=== PATIENT | male | born 1950 | race Caucasian/White ===

== ENCOUNTER 2022-05-06 22:25 | Inpatient (IN) | payer MEDICARE, SELFPAY ==
[2022-05-06 22:40] VITALS: BP 144/67; PULSE 56; RESP 16; TEMP 36.6; O2SAT 96
--- NOTE | 2022-05-07 03:47 | PC.ADMIT ---
Admission Note: Pt arrived on unit at 2237 as a direct admit from [facility]. Pt is a 71 male on a CV for SI and increased depression. Pt reports stressors are his finances and living situation. Pt rents a room and reports having difficulty walking up and down the stairs due to muscle weakness. Pt reports he smokes cigarettes 1 PPD and drinks 1 pint whiskey a day. CIWA WNL. NAD. Denies SI/HI/AH/VH. Contracts for safety. PMH: HTN. Pt AAOx4. Pleasant and cooperative with admission process. Maintained on q15 safety checks.
[2022-05-07 04:00] VITALS: BP 144/63; PULSE 53; RESP 16; TEMP 37.4; O2SAT 94
[2022-05-07 07:25] VITALS: BMI 25.2
[2022-05-07 08:25] VITALS: BP 109/54; PULSE 65; RESP 16; TEMP 36.4; O2SAT 95
[2022-05-07] MEDS: Folic Acid 1 MG TABLET PO (08:26)
[2022-05-07] MEDS: Atorvastatin Calcium 40 MG TABLET PO (08:26)
[2022-05-07] MEDS: lisinopriL 40 MG TABLET PO (08:27)
[2022-05-07] MEDS: Acetaminophen 325 MG TABLET 650 MG PO ×2 (08:33→17:27)
--- NOTE | 2022-05-07 13:48 | HO.PSYADMNOT ---
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 The patient reported that he had been feeling very depressed but in the last week he started having suicidal thoughts without a clear plan. he walked himself from the emergency room with a local hospital asking for help. He complains of chronic symptoms of depression elicited by depressed mood, anhedonia, lack of energy, feelings of hopelessness and worthlessness. Also the patient drinks alcohol in a daily basis around 1 been to of alcohol daily. According to his report, he has never been on detox or rehab but he have had the were used that is why he does not drive. On the emergency room, since the patient was unable to contract for safety he was deemed inpatient level of care and transferring to this facility for psychiatric stabilization. On the interview, the patient was pleasant and cooperative, he had a wider range of affect he stated that he was feeling down and depressed that he had several problems such as housing and difficult access to services. He denied auditory hallucinations, paranoia or safety concerns. He was able to contract for safety in this facility. Past Psychiatric History: Denies prior psychiatric treatment. Denies prior psychiatric admissions Medical Evaluation Reviewed: Yes [facility] Medical History Alcohol abuse Depression HLD (hyperlipidemia) HTN (hypertension) Vertigo Family History: denies Social History: the patient is the youngest of 3 children, his milestones were achieved at expected age and he was raised by his parents. He reported that he was doing very fine that he had a CT good childhood. 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 The patient has never been , he denies having children and he states that he has a few friends. Even though, he states that he lives on the 2nd floor and he has problems in going up and down and having access to services Substance History: tobacco 1 pack a day. Alcohol, he started using alcohol as a teenager and he had episodes of drinking heavily. Currently he drinks alcohol 1 pin today. He was placed on CIWA protocol and he scored 0. He denies prior treatment of alcohol use disorder, denies detox or rehab or delirium tremens. He denies use of other drugs Trauma History: denies Diagnostics Vital Signs (24Hr): Vital Signs - 24 hr 05/06/22 22:40 05/07/22 04:00 05/07/22 08:25 Temperature 97.9 F 99.3 F 97.6 F Pulse Rate 56 53 65 Respiratory Rate 16 16 16 Blood Pressure 144/67 H 144/63 H 109/54 L Pulse Oximetry 96 94 95 Oxygen Delivery Method Room Air Room Air Room Air BMI result Body Mass Index 25.2 Meds/Allergies Meds Home Medications Medication Instructions Recorded Confirmed Type lisinopril 40 mg tablet 40 mg PO DAILY 05/07/22 05/07/22 History Allergies Allergies Allergy/AdvReac Type Severity Reaction Status Date / Time No Known Allergies Allergy Verified 05/07/22 00:56 Mental Status Exam Mental Status Exam Patient Appearance: Unkempt Patient Orientation: Person and Situation Level of Consciousness: Awake Patient Behavior: Cooperative Mood Description: Calm Affect Description: Constricted Ability to Follow Directions: Fair Speech Pattern: Slurred and Appropriate Hallucinations: None Delusions: Not Present Thought Process: Linear Thought Content: positive for Circumstantial and positive for Poverty of Content Judgement: Fair Assessment & Plan Assessment & Plan (1) Depression: Status: Acute Code(s): F32.A - Depression, unspecified (2) Alcohol abuse: Status: Acute Code(s): F10.10 - Alcohol abuse, uncomplicated Plan The patient is an elderly male with limited social support with a long history of alcohol use disorder and recently suicidal thoughts in the context of poor access to services and other psychosocial stressors. Plan 1. Gather collateral information. 2. Continue medical workout. 3. Start Remeron 15 mg p.o. q.h.s. to target depression and insomnia. Patient educated on: diagnosis and therapeutic strategies Informed Consent: understands Reason for continued inpatient stay Substantial Risk for: harm to self, inability to function, rapid decompensation and med/psych decompensation
--- NOTE | 2022-05-07 15:12 | P.CONHOSP_ITS ---
History of Present Illness Data of Consult Service Date: 05/07/22 Primary Care Provider: Unknown Physician HPI Reason for consult: medical H&P 71 year old male with history htn, hld, vertigo, CKD stage III, 1ppd smoker, and alcohol abuse admitted to geriatric psychiatry with consult placed for medical H&P. Reports consuming 1pt hard alcohol daily, last drink was 1+ weeks ago. Denies withdrawal symptoms. Has noted some constipation but had full BM today. No associated abd pain, n/v, melena, hematochezia. Review of Systems Review of Systems: General: No fevers, malaise, unintentional weight loss HEENT: No blurred vision, diplopia Cardiovascular: No chest pain, palpitations, or leg edema Respiratory: No shortness of breath, wheezing, cough GI: +constipation. No abdominal pain, nausea, vomiting, diarrhea, melena, hematochezia Neuro: No headaches, weakness, paresthesias Psych: +depression, +si, +alcohol abuse Skin: No rashes or lesions [facility] Medical History Alcohol abuse Depression HLD (hyperlipidemia) HTN (hypertension) Vertigo Family History Mother Brain cancer Father [place] (myocardial infarction) Social History Household Members: Other Household Members Other:: Pt reports he rents a room in a house Housing: House Do you presently have visiting nurse or other home services: No Patient Tobacco Use Status: Current everyday Tobacco user Tobacco use type: Cigarette Cigarette Packs Per Day: 1 Cigarettes Per Day: 20.0 Years Smoked: 50 Smoked in Last 30 Days: Yes e-Cigarette/Vaping Use: Never Used Patient Interested in Nicotine Replacement: No Patient Given Instructions on How to Stop Smoking: No (Refused) Date Education Initiated: 05/06/22 Second Hand Smoke Exposure: Yes Use of substances other than those prescribed or required for medical reasons: No Substance Use Type Other:: Denies Currently Displaying Signs/Symptoms of Drug Intoxication Withdrawal: No Any prior treatment program specific to substance use: No Have you been hit, kicked, punched, or otherwise hurt by someone within the past year? If so, by whom?: No Do you feel safe in your current relationship?: No Current Relationship Is there a partner from a previous relationship who is making you feel unsafe now?: No Are you made to feel afraid or neglected: No Spiritual Healthcare Practices: Denies [facility] Practices: Denies Cultural Healthcare Practices: Denies Advance Directives: No Advance Directives Information Provided: Yes Advance Directives on File: No Do you have thoughts of harming others: None Do you have a plan to hurt others: No Plan Recently lost weight without trying: No How much weight loss: Not applicable Eating poorly because of decreased appetite: No Nutrition screen score: 0 Nutrition Risks: No Nutritional Risk Poor oral hygiene: No Meds Allergies Allergy/AdvReac Type Severity Reaction Status Date / Time No Known Allergies Allergy Verified 05/07/22 00:56 Active Medications: Current Medications Acetaminophen (Acetaminophen 325 Mg Tablet) 650 mg PO Q6H PRN PRN Reason: Headache/Pain Mild Scale (1-3) Last Admin: 05/07/22 08:33 Dose: 650 mg Al Hydroxide/Mg Hydroxide (Magnesium Hydrox/Alum Hydrox 30 Ml Oral.Susp) 30 ml PO Q6H PRN PRN Reason: Heartburn/Nausea Atorvastatin Calcium (Atorvastatin Calcium 40 Mg Tablet) 40 mg PO DAILY [facility] Last Admin: 05/07/22 08:26 Dose: 40 mg Folic Acid (Folic Acid 1 Mg Tablet) 1 mg PO DAILY [facility] Last Admin: 05/07/22 08:26 Dose: 1 mg Hydroxyzine HCl (Hydroxyzine Hcl 25 Mg Tablet) 25 mg PO Q6H PRN PRN Reason: Anxiety Lisinopril (Lisinopril 40 Mg Tablet) 40 mg PO DAILY [facility]; Protocol Last Admin: 05/07/22 08:27 Dose: 40 mg Lisinopril (Lisinopril 40 Mg Tablet) 40 mg PO DAILY [facility]; Protocol Lorazepam (Lorazepam 1 Mg Tablet) 1 mg PO Q6H PRN PRN Reason: CIWA <8 Magnesium Hydroxide (Milk Of Magnesia 30 Ml Oral.Susp) 30 ml PO DAILY PRN PRN Reason: Constipation Meclizine HCl (Meclizine Hcl 25 Mg Tablet) 25 mg PO Q6H PRN PRN Reason: dizziness Trazodone HCl (Trazodone Hcl 50 Mg Tablet) 50 mg PO BEDTIME PRN PRN Reason: Insomnia Home Medications Medication Instructions Recorded Confirmed Last Taken Type lisinopril 40 mg tablet 40 mg PO DAILY 05/07/22 05/07/22 Unknown History Physical Exam Vital Signs and Narrative: Vital Signs: Last Vital Signs Temp 97.6 F 05/07/22 08:25 Pulse 65 05/07/22 08:25 Resp 16 05/07/22 08:25 BP 109/54 L 05/07/22 08:25 Pulse Ox 95 05/07/22 08:25 O2 Del Method 05/07/22 08:25 BMI result Body Mass Index 25.2 Constitutional - Awake and Alert, No apparent distress Eyes - PERRLA, EOMI Cardiovascular - S1S2, RRR, No edema Respiratory - Normal lung expansion, Normal respiratory effort, No respiratory distress, CTA bilaterally Gastrointestinal - NT / ND; +BS; No rebound or guarding Extremities - no calf tenderness bilaterally, no swelling Musculoskeletal - Normal inspection, normal ROM Skin - Warm/Dry Neurological - Alert & oriented x3, CN II-XII in tact, 5/5 strength BUE and BLE Psychological - Appropriate affect Assessment and Plan (1) Depression: Status: Acute (2) Alcohol abuse: Status: Acute Plan 71 year old male with history htn, hld, vertigo, CKD stage III, 1ppd smoker, and alcohol abuse admitted to geriatric psychiatry with consult placed for medical H&P. #depression/si -Plan per psychiatry #HTN- controlled -Continue lisinopril -Add home hctz if hypertensive #HLD -continue atorvastatin 40mg daily #Vertigo -Continue meclizine prn #CKD stage 3 -Creat 1.49, BUn 30. Slight elevation from baseline, likely dehydration -Recommend repeat BMP #Nitcotine dependence -1ppd smoker -declines NRT #alcohol abuse -no active withdrawal -Plan per psychiatry #constipation -Recommend docusate BID prn. Can use milk of mag if no BM in 24 hours Thank you for allowing me to participate in this consult. Signing off at this time. Please do not hesitate to call for further questions.
--- NOTE | 2022-05-07 16:28 | PC.NURSE ---
Pt declined NRT, smokes 1 pack cigarettes daily. Will notify staff if decision changes.
[2022-05-07 17:31] VITALS: BP 112/57; PULSE 60; RESP 16; TEMP 36.7; O2SAT 94
[2022-05-07 18:00] VITALS: BP 112/53; PULSE 71; RESP 18; TEMP 36.4; O2SAT 93
[2022-05-08 07:00] VITALS: BMI 25.4
[2022-05-08 08:16] LABS: Estimated Average Glucose 120 mg/dL; Hemoglobin A1c % 5.8 %
[2022-05-08 08:24] LABS: Cholesterol 139 mg/dL; HDL Cholesterol 37 mg/dL; LDL Cholesterol Calculated 69 mg/dl; Magnesium 2.5 mg/dL (1.6-2.6); Triglycerides 167 mg/dL
[2022-05-08 08:45] LABS: Free T4 (Free Thyroxine) 1.11 ng/dL (0.71-1.85); Thyroid Stimulating Hormone 1.67 uIU/mL (0.32-4.0)
[2022-05-08 08:57] LABS: Folate 17.6 ng/mL (> or = 4.0); Vitamin B12 348 pg/mL (200-900)
[2022-05-08 09:28] VITALS: BP 122/55; PULSE 62; RESP 16; TEMP 36.1; O2SAT 92
[2022-05-08] MEDS: Folic Acid 1 MG TABLET PO (09:29)
[2022-05-08] MEDS: Atorvastatin Calcium 40 MG TABLET PO (09:30)
[2022-05-08] MEDS: Acetaminophen 325 MG TABLET 650 MG PO (09:34)
[2022-05-08] MEDS: lisinopriL 40 MG TABLET PO (09:35)
--- NOTE | 2022-05-08 11:57 | P.PNPSI_ITS ---
Subjective Subjective Date of Service: 05/08/22 Reason For Visit: Major Depressive Disorder,Alcohol use Disorder Subjective Notes: Conditional Voluntary Interim History: The nursing staff reported that the patient slept well overnight. The occupational therapist did a Early he scored 21/30 and his Lawrence test is 4.8 so he can not live independently with help. The physical therapist came and assessing that he is okay for the ambulation without help. On interview, the patient denies new symptoms I encouraged him to participate in group activities. Mental Status Exam Mental Status Exam Patient Appearance: Appropriate Patient Orientation: Person, Place and Situation Level of Consciousness: Awake Patient Behavior: Passive Mood Description: Calm Affect Description: Constricted Patient Cognition Impaired: Yes Ability to Follow Directions: Good Speech Pattern: Clear Hallucinations: None Delusions: Not Present Thought Process: Distracted Thought Content: positive for Linear Judgement: Fair Diagnostics Vital Signs (24Hr): Vital Signs - 24 hr 05/07/22 17:31 05/07/22 18:00 05/08/22 09:28 Temperature 98.1 F 97.6 F 97.0 F Pulse Rate 60 71 62 Respiratory Rate 16 18 16 Blood Pressure 112/57 L 112/53 L 122/55 L Pulse Oximetry 94 93 92 Oxygen Delivery Method Room Air Room Air Room Air BMI result Body Mass Index 25.4 Labs Labs: Laboratory Results - last 48 hr 05/08/22 05/08/22 05/08/22 07:54 07:54 07:54 Estimat Average Glucose 120 Hemoglobin A1c % 5.8 Magnesium 2.5 Triglycerides 167 Cholesterol 139 LDL Cholesterol, Calc 69 HDL Cholesterol 37 Vitamin B12 348 Folate 17.6 TSH 1.67 Free T4 1.11 Medications Medications Current Medications Acetaminophen (Acetaminophen 325 Mg Tablet) 650 mg PO Q6H PRN PRN Reason: Headache/Pain Mild Scale (1-3) Last Admin: 05/08/22 09:34 Dose: 650 mg Al Hydroxide/Mg Hydroxide (Magnesium Hydrox/Alum Hydrox 30 Ml Oral.Susp) 30 ml PO Q6H PRN PRN Reason: Heartburn/Nausea Atorvastatin Calcium (Atorvastatin Calcium 40 Mg Tablet) 40 mg PO DAILY [facility] Last Admin: 05/08/22 09:30 Dose: 40 mg Folic Acid (Folic Acid 1 Mg Tablet) 1 mg PO DAILY [facility] Last Admin: 05/08/22 09:29 Dose: 1 mg Hydroxyzine HCl (Hydroxyzine Hcl 25 Mg Tablet) 25 mg PO Q6H PRN PRN Reason: Anxiety Lisinopril (Lisinopril 40 Mg Tablet) 40 mg PO DAILY [facility]; Protocol Last Admin: 05/08/22 09:35 Dose: 40 mg Lorazepam (Lorazepam 1 Mg Tablet) 1 mg PO Q6H PRN PRN Reason: CIWA <8 Magnesium Hydroxide (Milk Of Magnesia 30 Ml Oral.Susp) 30 ml PO DAILY PRN PRN Reason: Constipation Meclizine HCl (Meclizine Hcl 25 Mg Tablet) 25 mg PO Q6H PRN PRN Reason: dizziness Mirtazapine (Mirtazapine 7.5 Mg Tablet) 7.5 mg PO BEDTIME [facility] Trazodone HCl (Trazodone Hcl 50 Mg Tablet) 50 mg PO BEDTIME PRN PRN Reason: Insomnia Allergies Allergies Allergy/AdvReac Type Severity Reaction Status Date / Time No Known Allergies Allergy Verified 05/07/22 00:56 Assessment & Plan Assessment & Plan (1) Depression: Status: Acute Code(s): F32.A - Depression, unspecified (2) Alcohol abuse: Status: Acute Code(s): F10.10 - Alcohol abuse, uncomplicated Plan The patient is an elderly male with limited social support with a long history of alcohol use disorder and recently suicidal thoughts in the context of poor access to services and other psychosocial stressors. Plan 1. Gather collateral information. 2. Continue medical workout. 3. Start Remeron 15 mg p.o. q.h.s. to target depression and insomnia. A 4. Discontinue CIWA protocol, start vitamins. I spent ___20___ minutes with the patient and/or on the patient floor today, greater than?50% of which was spent counseling/coordinating care. Reason for contiued inpatient stay Substantial Risk for: inability to function, rapid decompensation and med/psych decompensation
[2022-05-08 20:00] VITALS: BP 106/55; PULSE 55; RESP 16; TEMP 36.5; O2SAT 91
[2022-05-08] MEDS: Mirtazapine 7.5 MG TABLET PO (20:39)
[2022-05-09 08:20] VITALS: BP 106/51; PULSE 49; RESP 16; TEMP 36.6; O2SAT 94
[2022-05-09] MEDS: Folic Acid 1 MG TABLET PO (08:21)
[2022-05-09] MEDS: Multivitamin TABLET 1 TAB PO (08:21)
[2022-05-09] MEDS: Atorvastatin Calcium 40 MG TABLET PO (08:21)
--- NOTE | 2022-05-09 14:08 | HO.PSYCHPN ---
Subjective Subjective Date of Service: 05/09/22 Reason For Visit: Major Depressive Disorder,Alcohol use Disorder Subjective Notes: Conditional Voluntary Interim History: The nursing staff reported the patient has been in his room most of the time he got out only for meals and he had a shower. He slept 8 hours. The occupational therapist reported that he scored 21/30 on the [place] and 4.8 on the Lawrence test. The social work administrator reported that he has been living in his apartment for the last 20 years on the 2nd floor and he a leg that he cannot climb and he was looking for proper housing. [facility] called and we updated. We are in the process of getting more collateral information. On interview the patient denies new symptoms he does not look to dysphoric. No side effects with Remeron Mental Status Exam Mental Status Exam Patient Appearance: Appropriate Patient Orientation: Person and Situation Level of Consciousness: Awake Patient Behavior: Appropriate Mood Description: Depressed Affect Description: Constricted Patient Cognition Impaired: Yes Ability to Follow Directions: Good Speech Pattern: Clear Hallucinations: None Delusions: Not Present Thought Process: Distracted Thought Content: positive for [place] and positive for Poverty of Content Judgement: Fair Diagnostics Vital Signs (24Hr): Vital Signs - 24 hr 05/08/22 20:00 05/09/22 08:20 Temperature 97.7 F 97.8 F Pulse Rate 55 49 L Respiratory Rate 16 16 Blood Pressure 106/55 L 106/51 L Pulse Oximetry 91 L 94 Oxygen Delivery Method Room Air Room Air BMI result Body Mass Index 25.4 Labs Labs: Laboratory Results - last 48 hr 05/08/22 05/08/22 05/08/22 07:54 07:54 07:54 Estimat Average Glucose 120 Hemoglobin A1c % 5.8 Magnesium 2.5 Triglycerides 167 Cholesterol 139 LDL Cholesterol, Calc 69 HDL Cholesterol 37 Vitamin B12 348 Folate 17.6 TSH 1.67 Free T4 1.11 Medications Medications Current Medications Acetaminophen (Acetaminophen 325 Mg Tablet) 650 mg PO Q6H PRN PRN Reason: Headache/Pain Mild Scale (1-3) Last Admin: 05/08/22 09:34 Dose: 650 mg Al Hydroxide/Mg Hydroxide (Magnesium Hydrox/Alum Hydrox 30 Ml Oral.Susp) 30 ml PO Q6H PRN PRN Reason: Heartburn/Nausea Atorvastatin Calcium (Atorvastatin Calcium 40 Mg Tablet) 40 mg PO DAILY [facility] Last Admin: 05/09/22 08:21 Dose: 40 mg Folic Acid (Folic Acid 1 Mg Tablet) 1 mg PO DAILY [facility] Last Admin: 05/09/22 08:21 Dose: 1 mg Hydroxyzine HCl (Hydroxyzine Hcl 25 Mg Tablet) 25 mg PO Q6H PRN PRN Reason: Anxiety Lisinopril (Lisinopril 40 Mg Tablet) 40 mg PO DAILY [facility]; Protocol Last Admin: 05/09/22 08:22 Dose: Not Given Lorazepam (Lorazepam 1 Mg Tablet) 1 mg PO Q6H PRN PRN Reason: CIWA <8 Magnesium Hydroxide (Milk Of Magnesia 30 Ml Oral.Susp) 30 ml PO DAILY PRN PRN Reason: Constipation Meclizine HCl (Meclizine Hcl 25 Mg Tablet) 25 mg PO Q6H PRN PRN Reason: dizziness Mirtazapine (Mirtazapine 7.5 Mg Tablet) 7.5 mg PO BEDTIME [facility] Last Admin: 05/08/22 20:39 Dose: 7.5 mg Multivitamins/Vitamin C (Multivitamin Tablet) 1 tab PO DAILY [facility] Last Admin: 05/09/22 08:21 Dose: 1 tab Trazodone HCl (Trazodone Hcl 50 Mg Tablet) 50 mg PO BEDTIME PRN PRN Reason: Insomnia Allergies Allergies Allergy/AdvReac Type Severity Reaction Status Date / Time No Known Allergies Allergy Verified 05/07/22 00:56 Assessment & Plan Assessment & Plan (1) Depression: Status: Acute Code(s): F32.A - Depression, unspecified (2) Alcohol abuse: Status: Acute Code(s): F10.10 - Alcohol abuse, uncomplicated Plan The patient is an elderly male with limited social support with a long history of alcohol use disorder and recently suicidal thoughts in the context of poor access to services and other psychosocial stressors. Plan 1. Gather collateral information. 2. Continue medical workout. 3. Start Remeron 15 mg p.o. q.h.s. to target depression and insomnia. 4. Discontinue CIWA protocol, start vitamins. I spent __20____ minutes with the patient and/or on the patient floor today, greater than?50% of which was spent counseling/coordinating care. Reason for contiued inpatient stay Substantial Risk for: inability to function, rapid decompensation and med/psych decompensation
[2022-05-09 20:00] VITALS: BP 90/55; PULSE 57; RESP 16; TEMP 36.1; O2SAT 91
[2022-05-09] MEDS: Mirtazapine 7.5 MG TABLET PO (20:34)
[2022-05-10 07:50] VITALS: BP 122/68; PULSE 68; RESP 15; TEMP 36.8; O2SAT 95
[2022-05-10] MEDS: Folic Acid 1 MG TABLET PO (09:22)
[2022-05-10] MEDS: Multivitamin TABLET 1 TAB PO (09:22)
[2022-05-10] MEDS: Atorvastatin Calcium 40 MG TABLET PO (09:22)
[2022-05-10] MEDS: lisinopriL 40 MG TABLET PO (09:22)
--- NOTE | 2022-05-10 17:26 | HO.PSYCHPN ---
Subjective Subjective Date of Service: 05/10/22 Reason For Visit: Major Depressive Disorder,Alcohol use Disorder Interim History: The nursing staff reported the patient has been in his room most of the time he got out only for meals and he had a shower. He slept 8 hours. He reports his mood is good. He denies side effects of Remeron. Can't answer reasons for staying in his room and isolating. Denies SI. Review of Systems Review of Systems General: No fevers, malaise, unintentional weight loss HEENT: No blurred vision, diplopia Cardiovascular: No chest pain, palpitations, or leg edema Respiratory: No shortness of breath, wheezing, cough GI: +constipation. No abdominal pain, nausea, vomiting, diarrhea, melena, hematochezia Neuro: No headaches, weakness, paresthesias Psych: +depression, +si, +alcohol abuse Skin: No rashes or lesions Yes all other systems are reviewed and are negative Mental Status Exam Mental Status Exam Patient Appearance: Appropriate Patient Orientation: Person and Situation Level of Consciousness: Awake Patient Behavior: Appropriate Mood Description: Depressed Affect Description: Constricted Patient Cognition Impaired: Yes Ability to Follow Directions: Good Speech Pattern: Clear Diagnostics Vital Signs (24Hr): Vital Signs - 24 hr 05/09/22 20:00 Temperature 97 F Pulse Rate 57 Respiratory Rate 16 Blood Pressure 90/55 L Pulse Oximetry 91 L Oxygen Delivery Method Room Air BMI result Body Mass Index 25.4 Medications Medications Current Medications Acetaminophen (Acetaminophen 325 Mg Tablet) 650 mg PO Q6H PRN PRN Reason: Headache/Pain Mild Scale (1-3) Last Admin: 05/08/22 09:34 Dose: 650 mg Al Hydroxide/Mg Hydroxide (Magnesium Hydrox/Alum Hydrox 30 Ml Oral.Susp) 30 ml PO Q6H PRN PRN Reason: Heartburn/Nausea Atorvastatin Calcium (Atorvastatin Calcium 40 Mg Tablet) 40 mg PO DAILY [facility] Last Admin: 05/10/22 09:22 Dose: 40 mg Folic Acid (Folic Acid 1 Mg Tablet) 1 mg PO DAILY [facility] Last Admin: 05/10/22 09:22 Dose: 1 mg Hydroxyzine HCl (Hydroxyzine Hcl 25 Mg Tablet) 25 mg PO Q6H PRN PRN Reason: Anxiety Lisinopril (Lisinopril 40 Mg Tablet) 40 mg PO DAILY [facility]; Protocol Last Admin: 05/10/22 09:22 Dose: 40 mg Magnesium Hydroxide (Milk Of Magnesia 30 Ml Oral.Susp) 30 ml PO DAILY PRN PRN Reason: Constipation Meclizine HCl (Meclizine Hcl 25 Mg Tablet) 25 mg PO Q6H PRN PRN Reason: dizziness Mirtazapine (Mirtazapine 7.5 Mg Tablet) 7.5 mg PO BEDTIME [facility] Last Admin: 05/09/22 20:34 Dose: 7.5 mg Multivitamins/Vitamin C (Multivitamin Tablet) 1 tab PO DAILY [facility] Last Admin: 05/10/22 09:22 Dose: 1 tab Trazodone HCl (Trazodone Hcl 50 Mg Tablet) 50 mg PO BEDTIME PRN PRN Reason: Insomnia Allergies Allergies Allergy/AdvReac Type Severity Reaction Status Date / Time No Known Allergies Allergy Verified 05/07/22 00:56 Assessment & Plan Assessment & Plan (1) Depression: Status: Acute Code(s): F32.A - Depression, unspecified (2) Alcohol abuse: Status: Acute Code(s): F10.10 - Alcohol abuse, uncomplicated Plan The patient is an elderly male with limited social support with a long history of alcohol use disorder and recently suicidal thoughts in the context of poor access to services and other psychosocial stressors. Plan 1. Gather collateral information. 2. Continue medical work up. 3. Continue Remeron 15 mg p.o. q.h.s. to target depression and insomnia. I spent minutes with the patient and/or on the patient floor today, greater than?50% of which was spent counseling/coordinating care. Reason for contiued inpatient stay Substantial Risk for: inability to function
[2022-05-10 20:00] VITALS: BP 100/52; PULSE 53; RESP 16; TEMP 36.3; O2SAT 94
[2022-05-10] MEDS: Mirtazapine 7.5 MG TABLET PO (20:37)
[2022-05-11 07:45] VITALS: BP 161/66; PULSE 60; RESP 16; TEMP 36.3; O2SAT 96
[2022-05-11] MEDS: Multivitamin TABLET 1 TAB PO (09:33)
[2022-05-11] MEDS: Folic Acid 1 MG TABLET PO (09:33)
[2022-05-11] MEDS: lisinopriL 40 MG TABLET PO (09:33)
[2022-05-11] MEDS: Atorvastatin Calcium 40 MG TABLET PO (09:33)
[2022-05-11] MEDS: Docusate Sodium 100 MG CAPSULE PO (15:46)
--- NOTE | 2022-05-11 16:34 | P.PNPSI_ITS ---
Subjective Subjective Date of Service: 05/11/22 Reason For Visit: Major Depressive Disorder,Alcohol use Disorder Interim History: Patient seen and discussed Patient has been out of his room. Went to a group. He says he is constipated. He reports his mood is good. He denies side effects of Remeron. Denies SI. Review of Systems Review of Systems General: No fevers, malaise, unintentional weight loss HEENT: No blurred vision, diplopia Cardiovascular: No chest pain, palpitations, or leg edema Respiratory: No shortness of breath, wheezing, cough GI: +constipation. No abdominal pain, nausea, vomiting, diarrhea, melena, hematochezia Neuro: No headaches, weakness, paresthesias Psych: +depression, +si, +alcohol abuse Skin: No rashes or lesions Yes all other systems are reviewed and are negative Mental Status Exam Mental Status Exam Patient Appearance: Appropriate Patient Orientation: Person and Situation Level of Consciousness: Awake Patient Behavior: Appropriate Mood Description: Depressed Affect Description: Constricted Patient Cognition Impaired: Yes Ability to Follow Directions: Good Speech Pattern: Clear Diagnostics Vital Signs (24Hr): Vital Signs - 24 hr 05/10/22 20:00 05/11/22 07:45 Temperature 97.4 F 97.4 F Pulse Rate 53 60 Respiratory Rate 16 16 Blood Pressure 100/52 L 161/66 H Pulse Oximetry 94 96 Oxygen Delivery Method Room Air Room Air BMI result Body Mass Index 25.4 Medications Medications Current Medications Acetaminophen (Acetaminophen 325 Mg Tablet) 650 mg PO Q6H PRN PRN Reason: Headache/Pain Mild Scale (1-3) Last Admin: 05/08/22 09:34 Dose: 650 mg Al Hydroxide/Mg Hydroxide (Magnesium Hydrox/Alum Hydrox 30 Ml Oral.Susp) 30 ml PO Q6H PRN PRN Reason: Heartburn/Nausea Atorvastatin Calcium (Atorvastatin Calcium 40 Mg Tablet) 40 mg PO DAILY [facility] Last Admin: 05/11/22 09:33 Dose: 40 mg Docusate Sodium (Docusate Sodium 100 Mg Capsule) 100 mg PO BID [facility] Last Admin: 05/11/22 15:46 Dose: 100 mg Folic Acid (Folic Acid 1 Mg Tablet) 1 mg PO DAILY [facility] Last Admin: 05/11/22 09:33 Dose: 1 mg Hydroxyzine HCl (Hydroxyzine Hcl 25 Mg Tablet) 25 mg PO Q6H PRN PRN Reason: Anxiety Lisinopril (Lisinopril 40 Mg Tablet) 40 mg PO DAILY [facility]; Protocol Last Admin: 05/11/22 09:33 Dose: 40 mg Magnesium Hydroxide (Milk Of Magnesia 30 Ml Oral.Susp) 30 ml PO DAILY PRN PRN Reason: Constipation Meclizine HCl (Meclizine Hcl 25 Mg Tablet) 25 mg PO Q6H PRN PRN Reason: dizziness Mirtazapine (Mirtazapine 7.5 Mg Tablet) 7.5 mg PO BEDTIME [facility] Last Admin: 05/10/22 20:37 Dose: 7.5 mg Multivitamins/Vitamin C (Multivitamin Tablet) 1 tab PO DAILY [facility] Last Admin: 05/11/22 09:33 Dose: 1 tab Trazodone HCl (Trazodone Hcl 50 Mg Tablet) 50 mg PO BEDTIME PRN PRN Reason: Insomnia Allergies Allergies Allergy/AdvReac Type Severity Reaction Status Date / Time No Known Allergies Allergy Verified 05/07/22 00:56 Assessment & Plan Assessment & Plan (1) Depression: Status: Acute Code(s): F32.A - Depression, unspecified (2) Alcohol abuse: Status: Acute Code(s): F10.10 - Alcohol abuse, uncomplicated Plan The patient is an elderly male with limited social support with a long history of alcohol use disorder and recently suicidal thoughts in the context of poor access to services and other psychosocial stressors. Plan 1. Gather collateral information. 2. Continue medical work up. 3. Continue Remeron 15 mg p.o. q.h.s. to target depression and insomnia. I spent minutes with the patient and/or on the patient floor today, greater than?50% of which was spent counseling/coordinating care. Reason for contiued inpatient stay Substantial Risk for: inability to function and rapid decompensation
[2022-05-11 18:00] VITALS: BP 106/52; PULSE 71; RESP 18; TEMP 36.5; O2SAT 92
[2022-05-11] MEDS: Mirtazapine 7.5 MG TABLET PO (20:06)
[2022-05-12 06:00] VITALS: BP 129/60; PULSE 60; RESP 14; TEMP 36.3; O2SAT 93
[2022-05-12] MEDS: Docusate Sodium 100 MG CAPSULE PO ×2 (09:22→20:33)
[2022-05-12] MEDS: Multivitamin TABLET 1 TAB PO (09:22)
[2022-05-12] MEDS: Atorvastatin Calcium 40 MG TABLET PO (09:22)
[2022-05-12] MEDS: lisinopriL 40 MG TABLET PO (09:22)
[2022-05-12] MEDS: Folic Acid 1 MG TABLET PO (09:22)
--- NOTE | 2022-05-12 12:36 | HO.PSYCHPN ---
Subjective Subjective Date of Service: 05/12/22 Reason For Visit: Major Depressive Disorder,Alcohol use Disorder Interim History: The nursing staff reported the patient has been able to take all his medications and he denies active suicidal ideation. The occupational therapist did a mobility assessment apparently he can walk independently and climbs stairs with railing. The outreach and education social worker reported that 2 months ago his brother had a stroke, his brother used to help him around and now his nephews helping him. The outreach and education social worker will contact the family soon to get more collateral information. On interview, the patient denies new symptoms, he is safe in the facility. Mental Status Exam Mental Status Exam Patient Appearance: Well Grooomed Patient Orientation: Person Level of Consciousness: Awake Patient Behavior: Guarded and Passive Mood Description: Withdrawn Affect Description: Constricted Patient Cognition Impaired: Yes Ability to Follow Directions: Fair Speech Pattern: Clear Hallucinations: None Delusions: Not Present Thought Process: Distracted Thought Content: positive for Circumstantial Judgement: Fair Diagnostics Vital Signs (24Hr): Vital Signs - 24 hr 05/11/22 18:00 05/12/22 06:00 Temperature 97.7 F 97.4 F Pulse Rate 71 60 Respiratory Rate 18 14 Blood Pressure 106/52 L 129/60 Pulse Oximetry 92 93 Oxygen Delivery Method Room Air Room Air BMI result Body Mass Index 25.4 Medications Medications Current Medications Acetaminophen (Acetaminophen 325 Mg Tablet) 650 mg PO Q6H PRN PRN Reason: Headache/Pain Mild Scale (1-3) Last Admin: 05/08/22 09:34 Dose: 650 mg Al Hydroxide/Mg Hydroxide (Magnesium Hydrox/Alum Hydrox 30 Ml Oral.Susp) 30 ml PO Q6H PRN PRN Reason: Heartburn/Nausea Atorvastatin Calcium (Atorvastatin Calcium 40 Mg Tablet) 40 mg PO DAILY [facility] Last Admin: 05/12/22 09:22 Dose: 40 mg Docusate Sodium (Docusate Sodium 100 Mg Capsule) 100 mg PO BID [facility] Last Admin: 05/12/22 09:22 Dose: 100 mg Folic Acid (Folic Acid 1 Mg Tablet) 1 mg PO DAILY [facility] Last Admin: 05/12/22 09:22 Dose: 1 mg Hydroxyzine HCl (Hydroxyzine Hcl 25 Mg Tablet) 25 mg PO Q6H PRN PRN Reason: Anxiety Lisinopril (Lisinopril 40 Mg Tablet) 40 mg PO DAILY [facility]; Protocol Last Admin: 05/12/22 09:22 Dose: 40 mg Magnesium Hydroxide (Milk Of Magnesia 30 Ml Oral.Susp) 30 ml PO DAILY PRN PRN Reason: Constipation Meclizine HCl (Meclizine Hcl 25 Mg Tablet) 25 mg PO Q6H PRN PRN Reason: dizziness Mirtazapine (Mirtazapine 7.5 Mg Tablet) 7.5 mg PO BEDTIME [facility] Last Admin: 05/11/22 20:06 Dose: 7.5 mg Multivitamins/Vitamin C (Multivitamin Tablet) 1 tab PO DAILY [facility] Last Admin: 05/12/22 09:22 Dose: 1 tab Trazodone HCl (Trazodone Hcl 50 Mg Tablet) 50 mg PO BEDTIME PRN PRN Reason: Insomnia Allergies Allergies Allergy/AdvReac Type Severity Reaction Status Date / Time No Known Allergies Allergy Verified 05/07/22 00:56 Assessment & Plan Assessment & Plan (1) Depression: Status: Acute Code(s): F32.A - Depression, unspecified (2) Alcohol abuse: Status: Acute Code(s): F10.10 - Alcohol abuse, uncomplicated Plan The patient is an elderly male with limited social support with a long history of alcohol use disorder and recently suicidal thoughts in the context of poor access to services and other psychosocial stressors. Plan 1. Gather collateral information. 2. Continue medical work up. 3. Continue Remeron 15 mg p.o. q.h.s. to target depression and insomnia. I spent __20____ minutes with the patient and/or on the patient floor today, greater than?50% of which was spent counseling/coordinating care. Reason for contiued inpatient stay Substantial Risk for: inability to function, rapid decompensation and med/psych decompensation
[2022-05-12 18:00] VITALS: BP 151/65; PULSE 61; RESP 18; TEMP 36.4; O2SAT 93
[2022-05-12] MEDS: Mirtazapine 7.5 MG TABLET PO (20:33)
[2022-05-13 06:00] VITALS: BP 166/69; PULSE 68; RESP 14; TEMP 36.3; O2SAT 95
[2022-05-13] MEDS: lisinopriL 40 MG TABLET PO (10:57)
[2022-05-13] MEDS: Atorvastatin Calcium 40 MG TABLET PO (10:57)
[2022-05-13] MEDS: Multivitamin TABLET 1 TAB PO (10:58)
[2022-05-13] MEDS: Folic Acid 1 MG TABLET PO (10:58)
[2022-05-13] MEDS: Docusate Sodium 100 MG CAPSULE PO (10:58)
--- NOTE | 2022-05-13 13:30 | P.PNPSI_ITS ---
Subjective Subjective Date of Service: 05/13/22 Reason For Visit: Major Depressive Disorder,Alcohol use Disorder Subjective Notes: Conditional Voluntary Interim History: The nursing staff reported the patient slept well and he has been compliant with his medications. Occupational therapist recommends not to use the walker since he does not needed. The social studies department chair tried to contact his family and so far we could not talk with him. The social studies department chair in remained him that we cannot help in for housing and we were exploring send him back home in a safety manner. On interview the patient denies new symptoms. We discussed with him his alcohol use disorder that he minimizes. Mental Status Exam Mental Status Exam Patient Appearance: Well Grooomed Patient Orientation: Person and Situation Level of Consciousness: Awake Patient Behavior: Cooperative Mood Description: Calm Affect Description: Constricted Patient Cognition Impaired: Yes Ability to Follow Directions: Good Speech Pattern: Clear Hallucinations: None Delusions: Not Present Thought Process: Linear Thought Content: positive for Poverty of Content Judgement: Fair Diagnostics Vital Signs (24Hr): Vital Signs - 24 hr 05/12/22 18:00 Temperature 97.6 F Pulse Rate 61 Respiratory Rate 18 Blood Pressure 151/65 H Pulse Oximetry 93 Oxygen Delivery Method Room Air BMI result Body Mass Index 25.4 Medications Medications Current Medications Acetaminophen (Acetaminophen 325 Mg Tablet) 650 mg PO Q6H PRN PRN Reason: Headache/Pain Mild Scale (1-3) Last Admin: 05/08/22 09:34 Dose: 650 mg Al Hydroxide/Mg Hydroxide (Magnesium Hydrox/Alum Hydrox 30 Ml Oral.Susp) 30 ml PO Q6H PRN PRN Reason: Heartburn/Nausea Atorvastatin Calcium (Atorvastatin Calcium 40 Mg Tablet) 40 mg PO DAILY [facility] Last Admin: 05/13/22 10:57 Dose: 40 mg Docusate Sodium (Docusate Sodium 100 Mg Capsule) 100 mg PO BID [facility] Last Admin: 05/13/22 10:58 Dose: 100 mg Folic Acid (Folic Acid 1 Mg Tablet) 1 mg PO DAILY [facility] Last Admin: 05/13/22 10:58 Dose: 1 mg Hydroxyzine HCl (Hydroxyzine Hcl 25 Mg Tablet) 25 mg PO Q6H PRN PRN Reason: Anxiety Lisinopril (Lisinopril 40 Mg Tablet) 40 mg PO DAILY [facility]; Protocol Last Admin: 05/13/22 10:57 Dose: 40 mg Magnesium Hydroxide (Milk Of Magnesia 30 Ml Oral.Susp) 30 ml PO DAILY PRN PRN Reason: Constipation Meclizine HCl (Meclizine Hcl 25 Mg Tablet) 25 mg PO Q6H PRN PRN Reason: dizziness Mirtazapine (Mirtazapine 7.5 Mg Tablet) 7.5 mg PO BEDTIME [facility] Last Admin: 05/12/22 20:33 Dose: 7.5 mg Multivitamins/Vitamin C (Multivitamin Tablet) 1 tab PO DAILY [facility] Last Admin: 05/13/22 10:58 Dose: 1 tab Trazodone HCl (Trazodone Hcl 50 Mg Tablet) 50 mg PO BEDTIME PRN PRN Reason: Insomnia Allergies Allergies Allergy/AdvReac Type Severity Reaction Status Date / Time No Known Allergies Allergy Verified 05/07/22 00:56 Assessment & Plan Assessment & Plan (1) Depression: Status: Acute Code(s): F32.A - Depression, unspecified (2) Alcohol abuse: Status: Acute Code(s): F10.10 - Alcohol abuse, uncomplicated Plan The patient is an elderly male with limited social support with a long history of alcohol use disorder and recently suicidal thoughts in the context of poor access to services and other psychosocial stressors. Plan 1. Gather collateral information. 2. Continue medical work up. 3. Continue Remeron 15 mg p.o. q.h.s. to target depression and insomnia. I spent ___20___ minutes with the patient and/or on the patient floor today, greater than?50% of which was spent counseling/coordinating care. Reason for contiued inpatient stay Substantial Risk for: inability to function, rapid decompensation and med/psych decompensation
--- NOTE | 2022-05-13 16:04 | MHC.RECOVRN ---
This teletypewriter operator met w/ pt, pt alert, resting in bed awake. Pt reports last ETOH use 2 weeks ago, before being hospitalized. Pt states drinks one pint hard ETOH a few times per week. Pt states no history of ETOH induce seizures, no AVH. Pt states at times has woken up with tremors related to ETOH withdrawal. Pt reports no history of medications for Alcohol Use. Pt states at least 20 years ago, went to detox x's 1. Pt states has had no cravings since last use. Pt states in the past attended AA meetings. Pt reports brother whom just had a stroke was very active in AA community and pt states has friends who are active in AA whom pt can access if interested in recovery supports. Pt states not interested in recovery supports at this time. Harm reduction discussed.
[2022-05-13 18:00] VITALS: BP 166/69; PULSE 68; RESP 14; TEMP 36.3; O2SAT 95
[2022-05-13] MEDS: Mirtazapine 7.5 MG TABLET PO (21:40)
[2022-05-13 23:00] VITALS: BP 149/70; PULSE 58; RESP 16; TEMP 37.2; O2SAT 94
[2022-05-14 06:00] VITALS: BP 131/60; PULSE 63; RESP 14; TEMP 36.6; O2SAT 96
[2022-05-14] MEDS: Folic Acid 1 MG TABLET PO (09:14)
[2022-05-14] MEDS: Multivitamin TABLET 1 TAB PO (09:14)
[2022-05-14] MEDS: lisinopriL 40 MG TABLET PO (09:14)
[2022-05-14] MEDS: Atorvastatin Calcium 40 MG TABLET PO (09:14)
--- NOTE | 2022-05-14 11:40 | P.PNPSI_ITS ---
Subjective Subjective Date of Service: 05/14/22 Reason For Visit: Major Depressive Disorder,Alcohol use Disorder Subjective Notes: Conditional Voluntary Interim History: The nursing staff reported the patient slept well, he has been fully compliant with treatment. He was seen out for a few groups and he has been cooperative. The certified social workers in health care reported that last week she could contact her niece and she reported that the patient used to have [employer] and a intermediate fund and he used intermediate fund to buy alcohol and cigarettes and eventually he ran out of the [employer] and since then he has been more dysphoric. The certified social workers in health care is arranging services for his discharge. On interview, he denied suicidal ideation, no safety concerns. Mental Status Exam Mental Status Exam Patient Appearance: Appropriate Patient Orientation: Person and Situation Level of Consciousness: Awake Patient Behavior: Cooperative Mood Description: Withdrawn Affect Description: Constricted Patient Cognition Impaired: Yes Ability to Follow Directions: Good Speech Pattern: Clear Hallucinations: None Delusions: Not Present Thought Process: Linear Thought Content: positive for Circumstantial Judgement: Fair Diagnostics Vital Signs (24Hr): Vital Signs - 24 hr 05/13/22 18:00 05/13/22 23:00 05/14/22 06:00 Temperature 97.4 F 98.9 F 97.8 F Pulse Rate 68 58 63 Respiratory Rate 14 16 14 Blood Pressure 166/69 H 149/70 H 131/60 Pulse Oximetry 95 94 96 Oxygen Delivery Method Room Air Room Air Room Air BMI result Body Mass Index 25.4 Medications Medications Current Medications Acetaminophen (Acetaminophen 325 Mg Tablet) 650 mg PO Q6H PRN PRN Reason: Headache/Pain Mild Scale (1-3) Last Admin: 05/08/22 09:34 Dose: 650 mg Al Hydroxide/Mg Hydroxide (Magnesium Hydrox/Alum Hydrox 30 Ml Oral.Susp) 30 ml PO Q6H PRN PRN Reason: Heartburn/Nausea Atorvastatin Calcium (Atorvastatin Calcium 40 Mg Tablet) 40 mg PO DAILY [facility] Last Admin: 05/14/22 09:14 Dose: 40 mg Docusate Sodium (Docusate Sodium 100 Mg Capsule) 100 mg PO BID [facility] Last Admin: 05/14/22 09:17 Dose: Not Given Folic Acid (Folic Acid 1 Mg Tablet) 1 mg PO DAILY [facility] Last Admin: 05/14/22 09:14 Dose: 1 mg Hydroxyzine HCl (Hydroxyzine Hcl 25 Mg Tablet) 25 mg PO Q6H PRN PRN Reason: Anxiety Lisinopril (Lisinopril 40 Mg Tablet) 40 mg PO DAILY [facility]; Protocol Last Admin: 05/14/22 09:14 Dose: 40 mg Magnesium Hydroxide (Milk Of Magnesia 30 Ml Oral.Susp) 30 ml PO DAILY PRN PRN Reason: Constipation Meclizine HCl (Meclizine Hcl 25 Mg Tablet) 25 mg PO Q6H PRN PRN Reason: dizziness Mirtazapine (Mirtazapine 7.5 Mg Tablet) 7.5 mg PO BEDTIME [facility] Last Admin: 05/13/22 21:40 Dose: 7.5 mg Multivitamins/Vitamin C (Multivitamin Tablet) 1 tab PO DAILY [facility] Last Admin: 05/14/22 09:14 Dose: 1 tab Trazodone HCl (Trazodone Hcl 50 Mg Tablet) 50 mg PO BEDTIME PRN PRN Reason: Insomnia Allergies Allergies Allergy/AdvReac Type Severity Reaction Status Date / Time No Known Allergies Allergy Verified 05/07/22 00:56 Assessment & Plan Assessment & Plan (1) Depression: Status: Acute Code(s): F32.A - Depression, unspecified (2) Alcohol abuse: Status: Acute Code(s): F10.10 - Alcohol abuse, uncomplicated Plan The patient is an elderly male with limited social support with a long history of alcohol use disorder and recently suicidal thoughts in the context of poor access to services and other psychosocial stressors. Plan 1. Gather collateral information. 2. Continue medical work up. 3. Continue Remeron 15 mg p.o. q.h.s. to target depression and insomnia. 4. Discharge for this Thursday with services in the community I spent ___20___ minutes with the patient and/or on the patient floor today, greater than?50% of which was spent counseling/coordinating care. Reason for contiued inpatient stay Substantial Risk for: inability to function, rapid decompensation and med/psych decompensation
[2022-05-14 18:00] VITALS: BP 108/51; PULSE 56; RESP 17; TEMP 36.2; O2SAT 95
[2022-05-14] MEDS: Mirtazapine 7.5 MG TABLET PO (21:20)
[2022-05-14] MEDS: Acetaminophen 325 MG TABLET 650 MG PO (21:34)
[2022-05-15 06:00] VITALS: BP 163/70; PULSE 67; RESP 16; TEMP 36.4; O2SAT 95
[2022-05-15 07:00] VITALS: BMI 26.7
[2022-05-15] MEDS: lisinopriL 40 MG TABLET PO (09:10)
[2022-05-15] MEDS: Docusate Sodium 100 MG CAPSULE PO ×2 (09:10→20:23)
[2022-05-15] MEDS: Multivitamin TABLET 1 TAB PO (09:10)
[2022-05-15] MEDS: Atorvastatin Calcium 40 MG TABLET PO (09:11)
[2022-05-15] MEDS: Folic Acid 1 MG TABLET PO (09:11)
--- NOTE | 2022-05-15 13:05 | P.PNPSI_ITS ---
Subjective Subjective Date of Service: 05/15/22 Reason For Visit: Major Depressive Disorder,Alcohol use Disorder Subjective Notes: Conditional Voluntary Interim History: The nursing staff reported the patient had been compliant with treatment. He has slept very well and he has good appetite. He reports some pain on his back but apparently it is chronic. On interview the patient denies new symptoms, we have discussed with the team a will discharge him tomorrow with services at his home. No safety concerns at this moment Mental Status Exam Mental Status Exam Patient Appearance: Well Grooomed Patient Orientation: Person and Situation Level of Consciousness: Awake Patient Behavior: Cooperative Mood Description: Withdrawn Affect Description: Constricted Patient Cognition Impaired: Yes Ability to Follow Directions: Good Speech Pattern: Clear Hallucinations: None Delusions: Not Present Thought Process: Distracted Thought Content: positive for Circumstantial Judgement: Fair Diagnostics Vital Signs (24Hr): Vital Signs - 24 hr 05/14/22 18:00 05/15/22 06:00 Temperature 97.1 F 97.6 F Pulse Rate 56 67 Respiratory Rate 17 16 Blood Pressure 108/51 L 163/70 H Pulse Oximetry 95 95 Oxygen Delivery Method Room Air Room Air BMI result Body Mass Index 26.7 Medications Medications Current Medications Acetaminophen (Acetaminophen 325 Mg Tablet) 650 mg PO Q6H PRN PRN Reason: Headache/Pain Mild Scale (1-3) Last Admin: 05/14/22 21:34 Dose: 650 mg Al Hydroxide/Mg Hydroxide (Magnesium Hydrox/Alum Hydrox 30 Ml Oral.Susp) 30 ml PO Q6H PRN PRN Reason: Heartburn/Nausea Atorvastatin Calcium (Atorvastatin Calcium 40 Mg Tablet) 40 mg PO DAILY [facility] Last Admin: 05/15/22 09:11 Dose: 40 mg Docusate Sodium (Docusate Sodium 100 Mg Capsule) 100 mg PO BID [facility] Last Admin: 05/15/22 09:10 Dose: 100 mg Folic Acid (Folic Acid 1 Mg Tablet) 1 mg PO DAILY [facility] Last Admin: 05/15/22 09:11 Dose: 1 mg Hydroxyzine HCl (Hydroxyzine Hcl 25 Mg Tablet) 25 mg PO Q6H PRN PRN Reason: Anxiety Lisinopril (Lisinopril 40 Mg Tablet) 40 mg PO DAILY [facility]; Protocol Last Admin: 05/15/22 09:10 Dose: 40 mg Magnesium Hydroxide (Milk Of Magnesia 30 Ml Oral.Susp) 30 ml PO DAILY PRN PRN Reason: Constipation Meclizine HCl (Meclizine Hcl 25 Mg Tablet) 25 mg PO Q6H PRN PRN Reason: dizziness Mirtazapine (Mirtazapine 7.5 Mg Tablet) 7.5 mg PO BEDTIME [facility] Last Admin: 05/14/22 21:20 Dose: 7.5 mg Multivitamins/Vitamin C (Multivitamin Tablet) 1 tab PO DAILY [facility] Last Admin: 05/15/22 09:10 Dose: 1 tab Trazodone HCl (Trazodone Hcl 50 Mg Tablet) 50 mg PO BEDTIME PRN PRN Reason: Insomnia Allergies Allergies Allergy/AdvReac Type Severity Reaction Status Date / Time No Known Allergies Allergy Verified 05/07/22 00:56 Assessment & Plan Assessment & Plan (1) Depression: Status: Acute Code(s): F32.A - Depression, unspecified (2) Alcohol abuse: Status: Acute Code(s): F10.10 - Alcohol abuse, uncomplicated Plan The patient is an elderly male with limited social support with a long history of alcohol use disorder and recently suicidal thoughts in the context of poor access to services and other psychosocial stressors. Plan 1. Gather collateral information. 2. Continue medical work up. 3. Continue Remeron 15 mg p.o. q.h.s. to target depression and insomnia. 4. Discharge for this Thursday with services in the community I spent ___20___ minutes with the patient and/or on the patient floor today, greater than?50% of which was spent counseling/coordinating care. Reason for contiued inpatient stay Substantial Risk for: inability to function, rapid decompensation and med/psych decompensation
[2022-05-15 18:00] VITALS: BP 151/65; PULSE 57; RESP 17; TEMP 36.4; O2SAT 97
[2022-05-15] MEDS: Mirtazapine 7.5 MG TABLET PO (20:23)
[2022-05-16 08:00] VITALS: BP 159/76; PULSE 66; RESP 15; O2SAT 97
[2022-05-16] MEDS: Docusate Sodium 100 MG CAPSULE PO (09:08)
[2022-05-16] MEDS: Folic Acid 1 MG TABLET PO (09:08)
[2022-05-16] MEDS: lisinopriL 40 MG TABLET PO (09:08)
[2022-05-16] MEDS: Multivitamin TABLET 1 TAB PO (09:09)
[2022-05-16] MEDS: Atorvastatin Calcium 40 MG TABLET PO (09:10)
[2022-05-16] MEDS: Acetaminophen 325 MG TABLET 650 MG PO (09:10)
--- NOTE | 2022-05-16 10:50 | P.DS_ITS ---
DS: Providers Provider Date of Service: 05/16/22 Date of admission: 05/06/22 22:25 Date of discharge: 05/16/22 Primary care physician: Unknown Physician Consults: 05/07/22 00:57 Consult to Hospitalist Routine Consulting Provider: Hospitalist Reason For Exam: New admit from [facility] 05/07/22 09:15 Consult to Hospitalist Routine Consulting Provider: Hospitalist Reason For Exam: Direct admission from another hospital DS: Diagnosis Discharge Diagnosis (1) Depression: Status: Acute (2) Alcohol abuse: Status: Acute DS: Medications Discharge Medications Home Medications: Home Medications Medication Instructions Recorded Confirmed lisinopril 40 mg tablet 40 mg PO DAILY 05/07/22 05/07/22 Mental Status Exam Mental Status Exam Patient Appearance: Appropriate Patient Orientation: Person, Place and Situation Level of Consciousness: Awake Patient Behavior: Passive Mood Description: Calm Affect Description: Constricted Patient Cognition Impaired: No Ability to Follow Directions: Good Speech Pattern: Clear Hallucinations: None Delusions: Not Present Thought Process: Linear Thought Content: positive for [place] and positive for Poverty of Content Judgement: Fair DS: Summary Hospital Course Hospital Course: The patient was transferred from another emergency room from hospital out of our catchment area since he presented with suicidal ideation in the context of alcohol use disorder and limited social support. Please see the HPI from the admission note for further details. The patient was initially assessed and he disclosed some depressive symptoms elicited by depressed mood and lack of energy. He minimized his substance abuse and he stated he has never been a problem. Historically he has never been in detox or rehab or had any sort of treatment and he does not have any insight into his condition. Since the patient complained of poor sleep we start Remeron to target insomnia and depression. The social staff worker worked with him regarding his housing situation. He does not like to live there anymore, he had been living there for the last 25 years, he lives in an apartment in a 2nd floor that he states that is very difficult to the ambulate. Occupational therapist assessed him and there was no impediment for him to climb stairs. At several outpatient services were placed and since there were no safety concerns discharge planning was discussed. Time spent discussing smoking cessation with patient: 3 to 10 minutes Status at Discharge Cognitive/behavioral status at discharge: At baseline Functional status at discharge: independent ambulation Overall status at discharge: patient is back to baseline Time Spent with Patient Time attestation: Total time spent providing and/or coordinating discharge services: Time spent: Less than 30 minutes Discharge Plan Discharge Anticipated Discharge Date/Time: 05/16/22 10:53 Patient Disposition: Home, Self-Care Discharge Diagnosis: Alcohol use disorder Depressive disorder Referrals: Abdoulaye Nicholas [employer] [Other] - 05/28/22 2:30 pm (Appointment scheduled for 05/28 at 2:30PM.) [facility], Fredy Camilo CM [Other] - 05/21/22 10:30 am (Home visit scheduled for 05/21 at 10:30AM to set up [facility] services. ) Discharge Medications: New multivitamin [Daily-[place]] Tablet 1 tab PO DAILY 30 Days Qty: 30 0RF atorvastatin 40 mg Tablet 40 mg PO DAILY 30 Days Qty: 30 0RF folic acid 1 mg Tablet 1 mg PO DAILY 30 Days Qty: 30 0RF mirtazapine 7.5 mg Tablet 7.5 mg PO BEDTIME 30 Days Qty: 30 0RF Continued lisinopril 40 mg Tablet 40 mg PO DAILY 30 Days Qty: 30 0RF Discharge Orders: Discharge Order (Routine); Ordered 05/16/22 Ordered By: Rios Clark Diet: Advance to usual diet Activity on Discharge: As tolerated Stand Alone Forms: Patient Portal Discharge page Care Plan Goals: Care plan goals achieved in this admission. Health Concerns: Continue treatment with primary care Plan of Treatment: Continue outpatient services Assessment: The patient is an elderly male with alcohol use disorder who has never been treated that he does not want to be treated and dysphoria admitted for psychosocial stressors. At this moment safe in the community ready to be discharged with ancillary services.
== END 2022-05-16 14:00 | disposition home or self-care (01) | DRG 881 ==
PROVIDERS: Registered Nurse; Admitting Provider Psychiatry & Neurology Psychiatry; Visit Provider Psychiatry & Neurology Psychiatry
DX: F32.9 Major depressive disorder, single episode, unspecified (principal); R45.851 Suicidal ideations; E78.5 Hyperlipidemia, unspecified; R42 Dizziness and giddiness; I10 Essential (primary) hypertension; K59.00 Constipation, unspecified; F10.10 Alcohol abuse, uncomplicated; F17.210 Nicotine dependence, cigarettes, uncomplicated; I12.9 Hypertensive chronic kidney disease with stage 1 through stage 4 chronic kidney disease, or unspecified chronic kidney disease; N18.30 Chronic kidney disease, stage 3 unspecified; Z71.6 Tobacco abuse counseling; Z79.899 Other long term (current) drug therapy
CPT/HCPCS: 36415; 80061; 82607; 82746; 83036; 83735; 84439; 84443; 97161